=== PATIENT | male | born 1980 | race Asian ===

== ENCOUNTER 2017-02-19 04:02 | Emergency (ER) | payer MEDICAID ==
[2017-02-19] VITALS (7 sets, daily range): BP systolic 112–132; BP diastolic 58–88
[~2017-02-19] VITALS: Ht 177.8 cm; Wt 91.6 kg
[~2017-02-19 04:02] MED LIST: ALBUTEROL SULF8.5 GM INH
[2017-02-19] MEDS ORDERED: RISPERDAL1 MG/1 ML PO (04:09)
[2017-02-19] MEDS ORDERED: BUSPAR10 MG ORAL ×2 (04:09→17:08)
[2017-02-19] MEDS ORDERED: XANAX0.25 MG ORAL (04:09)
--- NOTE | 2017-02-19 04:32 | Emergency Room Report ---
History of Present Illness General Chief Complaint: Behavioral Complaint Source: Patient (Jose Elias Carvalho M.D.) Present Illness HPI The patient presents to [facility]. He started living in a [id number] facility. He states he wants to jump off a bridge hasn't chosen which to jump off of yet. The paramedics brought him out in front of traffic. He does take psychiatric medications and has been able to take them. He takes Risperdal 2 mg twice a day and BuSpar 5 mg twice a day. He also takes Xanax. Denies any drugs or alcohol. He hasn't eaten for several days. The patient complains about lower extremity pain because of walking so much. He started walking because he didn't like where he is living at this time. No NVD, cough, dysuria, headache, dizziness. No rashes. (Jose Elias Carvalho M.D.) Allergies: Coded Allergies: No Known Allergies (Unverified , 03/27/16) Patient History Past Medical History: see triage record Social History: Reports: alcohol use, drug use, Denies: smoking Social History Narrative [id number] Reviewed Nursing Documentation: PMH: Agreed, PSxH: Agreed (Jose Elias Carvalho M.D.) Nursing Documentation-PMH Hx Cardiac Problems: Yes - open heart surgery Hx Asthma: Yes (Jose Elias Carvalho M.D.) Review of Systems All Other Systems: negative except mentioned in HPI (Jose Elias Carvalho M.D.) Physical Exam Vital Signs Date Time Temp Pulse Resp B/P (MAP) Pulse Ox O2 Delivery O2 Flow Rate FiO2 02/19/17 04:03 98.2 76 18 124/86 100 Room Air Sp02 EP Interpretation: reviewed, normal General Appearance: well appearing, no apparent distress, GCS 15 Head: normocephalic Eyes: bilateral eye PERRL, bilateral eye Scleral Injection ENT: moist mucus membranes Neck: supple Respiratory: lungs clear, normal breath sounds Cardiovascular #1: regular rate, rhythm Cardiovascular #2: 2+ radial (R) Gastrointestinal: normal inspection, normal bowel sounds, non tender, no mass, non-distended Musculoskeletal: back normal, gait/station normal, normal range of motion Neurologic: alert, motor strength/tone normal, DTRs symmetric, sensory intact, cerebellar normal, normal gait, other - some slurred speech, oriented - X2 Psychiatric: depressed affect Suicide Risk Assessment: Suicidal Ideation: Yes Had intent to initiate attempt: Yes Pt's plan for suicide attempt: Yes Has means to complete attempt: Yes Skin: normal inspection, warm/dry (Jose Elias Carvalho M.D.) Medical Decision Making Diagnostic Impression: Primary Impression: Behavioral change Additional Impression: Suicidal ideation ER Course The patient presents with leg pain and suicidal ideation. Differential includes noncompliance, exacerbation of schizoaffective depression, abnormal electrolytes amongst others. Evaluation will be with EKG, labs. The patient will be continued on his Risperdal and BuSpar. He will need a psychiatric evaluation the morning if he still is feeling suicidal at that time. No indication for imaging at this time (ambulatory though c/w leg pain). Patient got dressed again. Ran through ED. Now states not suicidal but not responding to de-escalation. Agreed to take medication. Labs remarkable for + amphetamines. EKG below. Resting after treatment. Patient signed out to Dr. Nelson awaiting psychiatric evaluation. Laboratory Tests Test 02/19/17 04:42 02/19/17 05:13 White Blood Count 11.3 K/UL (4.8-10.8) H Red Blood Count 4.65 M/UL (4.70-6.10) L Hemoglobin 14.2 G/DL (14.2-18.0) Hematocrit 43.7 % (42.0-52.0) Mean Corpuscular Volume 94 FL (80-99) Mean Corpuscular Hemoglobin 30.5 PG (27.0-31.0) Mean Corpuscular Hemoglobin Concent 32.4 G/DL (32.0-36.0) Red Cell Distribution Width 12.3 % (11.6-14.8) Platelet Count 361 K/UL (150-450) Mean Platelet Volume 5.9 FL (6.5-10.1) L Neutrophils (%) (Auto) 73.6 % (45.0-75.0) Lymphocytes (%) (Auto) 16.0 % (20.0-45.0) L Monocytes (%) (Auto) 7.8 % (1.0-10.0) Eosinophils (%) (Auto) 1.7 % (0.0-3.0) Basophils (%) (Auto) 1.0 % (0.0-2.0) Sodium Level 138 mEQ/L (135-145) Potassium Level 4.8 mEQ/L (3.4-4.9) Chloride Level 101 mEQ/L (98-107) Carbon Dioxide Level 25 mEQ/L (20-30) Anion Gap 12 (5-15) Blood Urea Nitrogen 11 mg/dL (7-23) Creatinine 0.7 mg/dL (0.7-1.2) Estimate Glomerular Filtration Rate > 60 mL/min (>60) Glucose Level 126 mg/dL (74-106) H Calcium Level 9.1 mg/dL (8.6-10.2) Total Bilirubin 0.5 mg/dL (0.0-1.2) Aspartate Amino Transferase (AST) 28 U/L (5-40) Alanine Aminotransferase (ALT) 16 U/L (3-41) Alkaline Phosphatase 80 U/L (40-129) Total Creatine Kinase 290 U/L (38-174) H Troponin I < 0.30 ng/mL (<=0.30) Total Protein 7.0 g/dL (6.6-8.7) Albumin 4.1 g/dL (3.5-5.2) Globulin 2.9 g/dL Albumin/Globulin Ratio 1.4 (1.0-2.7) Salicylates Level < 1 mg/dL (10-30) L Acetaminophen Level < 10 ug/mL (10-30) L Serum Alcohol < 10 mg/dL Urine Color Yellow Urine Appearance Clear Urine pH 6.5 (4.5-8.0) Urine Specific [place] 1.020 (1.005-1.035) Urine Protein 1+ (NEGATIVE) H Urine Glucose (UA) Negative (NEGATIVE) Urine Ketones 3+ (NEGATIVE) H Urine Occult Blood Negative (NEGATIVE) Urine Nitrite Negative (NEGATIVE) Urine Bilirubin Negative (NEGATIVE) Urine Urobilinogen 4 MG/DL (0.0-1.0) H Urine Leukocyte Esterase 1+ (NEGATIVE) H Urine RBC 0-2 /HPF (0 - 0) H Urine WBC 2-4 /HPF (0 - 0) Urine Squamous Epithelial Cells Occasional /LPF Urine Amorphous Sediment Few /LPF (NONE) H Urine Bacteria Few /HPF (NONE) Urine Opiates Screen Negative (NEGATIVE) Urine Barbiturates Screen Negative (NEGATIVE) Phencyclidine (PCP) Screen Negative (NEGATIVE) Urine Amphetamines Screen Positive (NEGATIVE) H Urine Benzodiazepines Screen Negative (NEGATIVE) Urine Cocaine Screen Negative (NEGATIVE) Urine Marijuana (THC) Screen Positive (NEGATIVE) H (Jose Elias Carvalho M.D.) ER Course Received signout from Dr Nelson at 2pm Patient was cleared by Dr Brown SW was consulted and patient's father was found who came to ED Unbeknowest to staff, patient's father gave him a dose of riperdone, buspar and 50mg bendadryl Patient is sleepy but arousable now - vehemently denies SI, HI, AVH Father requesting refills of Risperdone/Buspar which were given Patient is NOT on a HOLD so was DCed with father Father states he will take patient to his B&C (LAURE WYATT M.D.) EKG Diagnostic Results Rate: normal Rhythm: NSR ST Segments: no acute changes (Jose Elias Carvalho M.D.) Rhythm Strip Diag. Results EP Interpretation: yes Rhythm: NSR, no PVC's, no ectopy (Jose Elias Carvalho M.D.) Laboratory Tests Test 02/19/17 04:42 02/19/17 05:13 White Blood Count 11.3 K/UL (4.8-10.8) H Red Blood Count 4.65 M/UL (4.70-6.10) L Hemoglobin 14.2 G/DL (14.2-18.0) Hematocrit 43.7 % (42.0-52.0) Mean Corpuscular Volume 94 FL (80-99) Mean Corpuscular Hemoglobin 30.5 PG (27.0-31.0) Mean Corpuscular Hemoglobin Concent 32.4 G/DL (32.0-36.0) Red Cell Distribution Width 12.3 % (11.6-14.8) Platelet Count 361 K/UL (150-450) Mean Platelet Volume 5.9 FL (6.5-10.1) L Neutrophils (%) (Auto) 73.6 % (45.0-75.0) Lymphocytes (%) (Auto) 16.0 % (20.0-45.0) L Monocytes (%) (Auto) 7.8 % (1.0-10.0) Eosinophils (%) (Auto) 1.7 % (0.0-3.0) Basophils (%) (Auto) 1.0 % (0.0-2.0) Sodium Level 138 mEQ/L (135-145) Potassium Level 4.8 mEQ/L (3.4-4.9) Chloride Level 101 mEQ/L (98-107) Carbon Dioxide Level 25 mEQ/L (20-30) Anion Gap 12 (5-15) Blood Urea Nitrogen 11 mg/dL (7-23) Creatinine 0.7 mg/dL (0.7-1.2) Estimate Glomerular Filtration Rate > 60 mL/min (>60) Glucose Level 126 mg/dL (74-106) H Calcium Level 9.1 mg/dL (8.6-10.2) Total Bilirubin 0.5 mg/dL (0.0-1.2) Aspartate Amino Transferase (AST) 28 U/L (5-40) Alanine Aminotransferase (ALT) 16 U/L (3-41) Alkaline Phosphatase 80 U/L (40-129) Total Creatine Kinase 290 U/L (38-174) H Troponin I < 0.30 ng/mL (<=0.30) Total Protein 7.0 g/dL (6.6-8.7) Albumin 4.1 g/dL (3.5-5.2) Globulin 2.9 g/dL Albumin/Globulin Ratio 1.4 (1.0-2.7) Salicylates Level < 1 mg/dL (10-30) L Acetaminophen Level < 10 ug/mL (10-30) L Serum Alcohol < 10 mg/dL Urine Color Yellow Urine Appearance Clear Urine pH 6.5 (4.5-8.0) Urine Specific [place] 1.020 (1.005-1.035) Urine Protein 1+ (NEGATIVE) H Urine Glucose (UA) Negative (NEGATIVE) Urine Ketones 3+ (NEGATIVE) H Urine Occult Blood Negative (NEGATIVE) Urine Nitrite Negative (NEGATIVE) Urine Bilirubin Negative (NEGATIVE) Urine Urobilinogen 4 MG/DL (0.0-1.0) H Urine Leukocyte Esterase 1+ (NEGATIVE) H Urine RBC 0-2 /HPF (0 - 0) H Urine WBC 2-4 /HPF (0 - 0) Urine Squamous Epithelial Cells Occasional /LPF Urine Amorphous Sediment Few /LPF (NONE) H Urine Bacteria Few /HPF (NONE) Urine Opiates Screen Negative (NEGATIVE) Urine Barbiturates Screen Negative (NEGATIVE) Phencyclidine (PCP) Screen Negative (NEGATIVE) Urine Amphetamines Screen Positive (NEGATIVE) H Urine Benzodiazepines Screen Negative (NEGATIVE) Urine Cocaine Screen Negative (NEGATIVE) Urine Marijuana (THC) Screen Positive (NEGATIVE) H Status: improved (Jose Elias Carvalho M.D.) Status: improved (LAURE WYATT M.D.) Disposition: HOME, SELF-CARE Condition: Improved Scripts Buspirone Hcl* (BUSPAR*) 10 Mg Tablet 5 MG ORAL BID for 30 Days, #30 TAB 0 Refills Prov: LAURE WYATT M.D. 02/19/17 Risperidone* (RISPERDAL*) 2 Mg Tablet 2 MG ORAL BID for 30 Days, #60 TAB 0 Refills Prov: LAURE WYATT M.D. 02/19/17 Jose Elias Carvalho M.D. Feb 19, 2017 04:32 LAURE WYATT M.D. Feb 19, 2017 17:12
[2017-02-19 05:04] LABS: EOSINOPHILS % (AUTO) 1.7 % (0.0-3.0); MEAN CORPUSCULAR HEMOGLOBIN 30.5 PG (27.0-31.0); MEAN CORPUSCULAR HGB CONC 32.4 G/DL (32.0-36.0); MEAN CORPUSCULAR VOLUME 94 FL (80-99); MEAN PLATELET VOLUME 5.9 FL (6.5-10.1); MONOCYTES % (AUTO) 7.8 % (1.0-10.0); NEUTROPHILS % (AUTO) 73.6 % (45.0-75.0); PLATELET COUNT 361 K/UL (150-450); RED BLOOD COUNT 4.65 M/UL (4.70-6.10); RED CELL DISTRIBUTION WIDTH 12.3 % (11.6-14.8); WHITE BLOOD COUNT 11.3 K/UL (4.8-10.8)
[2017-02-19] MEDS ORDERED: LORazepam 1mg tab ORAL ONE (05:30)
[2017-02-19] MEDS ORDERED: Haloperidol 5mg/ml Inj IM ONE (05:30)
[2017-02-19 05:36] LABS: APPEARANCE,URINE CLEAR; KETONES,URINE 3+ (NEGATIVE); LEUKOCYTE ESTERASE ,URINE 1+ (NEGATIVE); NITRITE,URINE NEGATIVE (NEGATIVE); PH,URINE 6.5 (4.5-8.0); PROTEIN,URINE 1+ (NEGATIVE); UROBILINOGEN,URINE 4 MG/DL (0.0-1.0)
[2017-02-19 05:36] LABS: ACETAMINOPHEN < 10 ug/mL (10-30); ALANINE AMINOTRANSFERASE 16 U/L (3-41); ALBUMIN/GLOBULIN RATIO 1.4 (1.0-2.7); ALCOHOL < 10 mg/dL; ANION GAP 12 (5-15); ASPARTATE AMINO TRANSFERASE 28 U/L (5-40); CALCIUM 9.1 mg/dL (8.6-10.2); CARBON DIOXIDE 25 mEQ/L (20-30); CHLORIDE 101 mEQ/L (98-107); CREATININE 0.7 mg/dL (0.7-1.2); GLOMERULAR FILTRATION RATE > 60 mL/min (>60); HEMOLYSIS 142; POTASSIUM 4.8 mEQ/L (3.4-4.9); SODIUM 138 mEQ/L (135-145)
[2017-02-19 05:53] LABS: RBC,URINE 0-2 /HPF (0 - 0); SQUAMOUS EPITHELIAL CELL,UR OCCASIONAL /LPF (NONE/OCC)
[2017-02-19 05:54] LABS: AMORPHOUS SEDIMENT,UR FEW /LPF; BACTERIA,URINE FEW /HPF
[2017-02-19 06:43] LABS: TROPONIN I < 0.30 ng/mL (<=0.30)
[2017-02-19] MEDS: BusPIRone 5mg Tab ORAL SCH ×2 (08:46→09:05)
[2017-02-19] MEDS ORDERED: RISPERDAL2 MG ORAL (17:08)
--- NOTE | 2017-02-22 08:45 | Consultation ---
DATE OF CONSULTATION: CONSULTING PHYSICIAN: Claudio Brown M.D. HISTORY OF PRESENT ILLNESS: The patient is a 36-year-old male with unknown psychiatric history, who has been admitted to the hospital. He stated that he was suicidal; however, during my evaluation, he denied being suicidal. He was asked 5 times at least and he denied having any suicidal ideation. When he was brought in, his system was positive for crystal methamphetamine as well as marijuana. He is apparently coming from home and not from a board and care. Our social media specialist is contacting the family member to find out where the patient is coming from. During my evaluation, the patient has not been presented with psychotic symptoms. Mood liability. No current suicidal or homicidal ideation 00:53 in the context of using crystal methamphetamine and substance abuse disorder. PAST PSYCHIATRIC HISTORY: No known psychiatric hospitalization. He denied any suicide attempt in the past. However, there is history of self-mutilation. There are cigarette dias on his upper extremities that are old. SUBSTANCE USE HISTORY: Significant for crystal methamphetamine and marijuana. Unknown for alcohol. MENTAL STATUS EXAMINATION: The patient was sleepy, however, he knew his name, he knew where he is, and he knew the situation he was in. His mood was neutral. Affect was constricted, congruent with mood. Thought process was concrete. Thought content, no suicidal or homicidal ideation. No psychotic symptoms were noted. ASSESSMENT: [place] I Crystal methamphetamine use and marijuana use. [place] II Deferred. [place] III As above. [place] IV Low. [place] V Global assessment of functioning is 30 to 40. PLAN: We will contact the father. The patient was treated with BuSpar and risperidone. He was not given any benzodiazepine in the ER. At the time of evaluation, the patient is not an imminent danger to self or others. However, we will continue to reassess him. He does not meet the criteria 5150. We will call the father to figure out the plan. Claudio Brown M.D. DR: Harlan JOB#: [id number] CC:
--- NOTE | 2017-02-25 23:14 | Cardiology Report ---
APPROVED REPORT EKG Measurement Heart [id number] Normal sinus rhythm Normal ECG
== END 2017-02-19 17:20 | disposition home or self-care (01) ==
LOC: EDBD 04:02 → EMR 04:53
DX: F91.9 Conduct disorder, unspecified (principal); R45.851 Suicidal ideations; J45.909 Unspecified asthma, uncomplicated; Z79.899 Other long term (current) drug therapy
CPT/HCPCS: 36415; 80053; 80300; 80329; 81003; 82550; 84484; 85025; 93005; 96372; 99284; J1630